=== PATIENT | female | born 1950 | race Caucasian/White ===

== ENCOUNTER 2024-04-09 05:53 | Inpatient (IN) | payer MEDICARE, BC ==
[~2024-04-09] VITALS: Ht 160 cm; Wt 77.1 kg
[2024-04-09] MEDS ORDERED: ANESTHESIA TRAY IN PYXIS 1 EA TRAY MC ONE (06:57)
[2024-04-09] MEDS ORDERED: ROCURONIUM BROMIDE 50 MG/5 ML ONE (06:58)
[2024-04-09] MEDS ORDERED: FENTANYL PF 100MCG/2ML AMPUL ONE (06:58)
[2024-04-09] MEDS ORDERED: FAMOTIDINE/PF INJ 20 MG/2 ML VIAL IV ONE (06:58)
[2024-04-09] MEDS ORDERED: OXYMETAZOLINE HCL NASAL SPRAY 30 ML BOTTLE NS ONE (07:10)
[2024-04-09] MEDS ORDERED: dexaMETHasone SOD PHOSPHATE 2 ML ONE (07:10)
[2024-04-09] MEDS ORDERED: VANCOMYCIN 1 GM VIAL ONE (07:10)
[2024-04-09] MEDS ORDERED: LIDOCAINE 2%-EPI 1:100,000 30 ML VIAL ONE (07:10)
[2024-04-09] MEDS ORDERED: ONDANSETRON HCL/PF 4 MG/2 ML VIAL IVP PRN (10:30)
[2024-04-09] MEDS ORDERED: ACETAMINOPHEN 325 MG TABLET PO PRN (10:30)
[2024-04-09] MEDS: HYDROMORPHONE 1 MG/1 ML DISP.SYRIN IV PRN (11:03)
[2024-04-09] MEDS: IV NS 0.9% 1,000 ML IV PRN (11:15)
[2024-04-09] MEDS ORDERED: MOUNJARO SQ (11:19)
[2024-04-09] MEDS ORDERED: NEBI5TAB8 PO (11:19)
[2024-04-09] MEDS ORDERED: ROSU20TA2 PO (11:19)
[2024-04-09] MEDS ORDERED: TELM20TA8 PO (11:19)
[2024-04-09] MEDS ORDERED: FAMO40TA7 PO (11:19)
[2024-04-09] MEDS ORDERED: IBUPROFEN-FAMOTIDINE PO (11:19)
[2024-04-09] MEDS ORDERED: DAPA10TA PO (11:19)
[2024-04-09] MEDS ORDERED: FAMOTIDINE (20 MG) 20 MG TABLET PO PRN (12:30)
[2024-04-09 17:52] VITALS: BP 125/75; TEMP 97.7; O2SAT 95
[2024-04-09 20:00] VITALS: BP 105/49; TEMP 97.9; O2SAT 92
[2024-04-09] MEDS: METOPROLOL TARTRATE 25 MG TABLET PO SCH (20:16)
[2024-04-09] MEDS: VANCOMYCIN 1 GM in IV D5W 250ml IV SCH (20:25)
[2024-04-09 20:41] VITALS: O2SAT 95
[2024-04-10 08:00] VITALS: BP 100/61; TEMP 98.8; O2SAT 96
[2024-04-10] MEDS: LOSARTAN POTASSIUM 25 MG TABLET PO SCH (08:19)
[2024-04-10 16:00] VITALS: BP 107/96; TEMP 98.6; O2SAT 98
== END 2024-04-10 14:00 | disposition home or self-care (01) | DRG 141 ==
LOC: DS 05:53 → MED 10:30
PROVIDERS: ADMIT Internal Medicine; ATTEND Internal Medicine
PROC: 0NSR04Z Reposition Maxilla with Internal Fixation Device, Open Approach (ICD-10-PCS; principal; 2024-04-09)
PROC: 0NBR0ZX Excision of Maxilla, Open Approach, Diagnostic (ICD-10-PCS; 2024-04-09)
PROC: 0NUR07Z Supplement Maxilla with Autologous Tissue Substitute, Open Approach (ICD-10-PCS; 2024-04-09)
PROC: 0NUR0JZ Supplement Maxilla with Synthetic Substitute, Open Approach (ICD-10-PCS; 2024-04-09)
DX: S02.40DA Maxillary fracture, left side, initial encounter for closed fracture (principal); M86.20 Subacute osteomyelitis, unspecified site; M87.9 Osteonecrosis, unspecified; M27.2 Inflammatory conditions of jaws; M27.40 Unspecified cyst of jaw; D21.9 Benign neoplasm of connective and other soft tissue, unspecified; E66.9 Obesity, unspecified; Z68.30 Body mass index [BMI] 30.0-30.9, adult; E78.5 Hyperlipidemia, unspecified; E11.69 Type 2 diabetes mellitus with other specified complication; I10 Essential (primary) hypertension; J32.0 Chronic maxillary sinusitis; X58.XXXA Exposure to other specified factors, initial encounter; Y92.9 Unspecified place or not applicable
CPT/HCPCS: 82962-TC; 87081-TC; 88305-TC; 88311-TC; A4223; C1713; G0378; J1100; J1170; J2405; J2704; J3010; J3370; J3490; J7030; J7050; J7060

== ENCOUNTER 2024-09-17 07:19 | Inpatient (IN) | payer MEDICARE, BC ==
[2024-09-17] VITALS (7 sets, daily range): BP systolic 99–113; BP diastolic 54–89; TEMP 97.5–98.2; O2SAT 91–99
[~2024-09-17] VITALS: Ht 160 cm; Wt 83.9 kg
[~2024-09-17 07:19] MED LIST: DAPA10TA PO; FAMO40TA7 PO; IBUPROFEN-FAMOTIDINE PO; MOUNJARO SQ; NEBI5TAB8 PO; ROSU20TA2 PO; TELM20TA8 PO
[2024-09-17] MEDS ORDERED: LIDOCAINE 2%-EPI 1:100,000 30 ML VIAL ONE (09:55)
[2024-09-17] MEDS ORDERED: VANCOMYCIN 1 GM VIAL ONE (09:55)
[2024-09-17] MEDS ORDERED: dexaMETHasone SOD PHOSPHATE 2 ML ONE (09:55)
[2024-09-17] MEDS ORDERED: DULA0.75 SQ (10:08)
[2024-09-17] MEDS ORDERED: ONDANSETRON HCL/PF 4 MG/2 ML VIAL IV PRN (12:00)
[2024-09-17] MEDS ORDERED: ACETAMINOPHEN 325 MG TABLET PO PRN (12:00)
[2024-09-17] MEDS: IV NS 0.9% 1,000 ML IV PRN (12:12)
[2024-09-17] MEDS: HYDROMORPHONE 1 MG/1 ML DISP.SYRIN IV PRN (14:47)
[2024-09-17] MEDS: METOPROLOL TARTRATE 25 MG TABLET PO SCH (21:18)
[2024-09-17] MEDS: VANCOMYCIN 1 GM in IV D5W 250ml IV SCH (22:02)
[2024-09-18 06:23] LABS: BASOPHILS % (AUTO) 0.1 % (0.0-2.0); HEMATOCRIT 40 % (33-45); HEMOGLOBIN 13.3 g/dL (11.5-14.8); LYMPHOCYTES # (AUTO) 1.2 K/uL (0.8-4.8); LYMPHOCYTES % (AUTO) 9.6 % (20.0-44.0); MEAN CORPUSCULAR HEMOGLOBIN 32 PG (26.0-33.0); MEAN CORPUSCULAR HGB CONC 33 g/dl (31.0-36.0); MEAN CORPUSCULAR VOLUME 95 fL (82-100); MONOCYTES # (AUTO) 0.7 K/uL (0.1-1.30); MONOCYTES % (AUTO) 5.8 % (2.0-12.0); NEUTROPHILS # (AUTO) 10.7 K/uL (1.8-8.9); NEUTROPHILS % (AUTO) 84.5 % (43.0-81.0); PLATELET COUNT (AUTO) 241 K/uL (150-450); RED BLOOD CELL COUNT(AUTO) 4.24 MIL/uL (4.0-5.2); RED CELL DISTRIBUTION WIDTH 13.9 % (11.5-15.0); WHITE BLOOD COUNT (AUTO) 12.6 K/uL (4.3-11.0)
[2024-09-18 06:46] LABS: ALANINE AMINOTRANSFERASE 26 U/L (12-78); ALBUMIN 3.3 g/dL (3.4-5.0); ALKALINE PHOSPHATASE 63 U/L (46-116); ASPARTATE AMINOTRANSFERASE 14 U/L (15-37); BILIRUBIN,TOTAL 0.4 mg/dL (0.2-1.0); CARBON DIOXIDE 27 mmol/L (21-32); CHLORIDE 104 mmol/L (98-107); CREATININE 0.9 mg/dL (0.6-1.3); GLUCOSE 174 mg/dL (74-106); MAGNESIUM 2.2 mg/dL (1.8-2.4); POTASSIUM 4.4 mmol/L (3.5-5.1); SODIUM SERUM 139 mmol/L (136-145); TOTAL PROTEIN, SERUM 6.3 g/dL (6.4-8.2); UREA NITROGEN, BLOOD 25 mg/dL (7-18)
[2024-09-18 08:00] VITALS: BP 109/71; TEMP 98.2; O2SAT 97
[2024-09-18] MEDS: DAPAGLIFLOZIN PROPANEDIOL 5 MG TABLET PO SCH (08:26)
[2024-09-18] MEDS: ATORVASTATIN 40 MG TABLET PO SCH (08:27)
[2024-09-18 08:29] VITALS: BP 109/71
[2024-09-18] MEDS: LOSARTAN POTASSIUM 25 MG TABLET PO SCH (08:29)
== END 2024-09-18 13:15 | disposition home or self-care (01) | DRG 908 ==
LOC: DS 07:19 → MED 07:23
PROVIDERS: ADMIT Internal Medicine; ATTEND Internal Medicine
PROC: 0NPW0JZ Removal of Synthetic Substitute from Facial Bone, Open Approach (ICD-10-PCS; principal; 2024-09-17)
PROC: 0N5R0ZZ Destruction of Maxilla, Open Approach (ICD-10-PCS; 2024-09-17)
PROC: 0NUR07Z Supplement Maxilla with Autologous Tissue Substitute, Open Approach (ICD-10-PCS; 2024-09-17)
PROC: 0NSR04Z Reposition Maxilla with Internal Fixation Device, Open Approach (ICD-10-PCS; 2024-09-17)
DX: T86.831 Bone graft failure (principal); S02.40DK Maxillary fracture, left side, subsequent encounter for fracture with nonunion; T84.7XXA Infection and inflammatory reaction due to other internal orthopedic prosthetic devices, implants and grafts, initial encounter; E11.9 Type 2 diabetes mellitus without complications; E78.5 Hyperlipidemia, unspecified; Y83.2 Surgical operation with anastomosis, bypass or graft as the cause of abnormal reaction of the patient, or of later complication, without mention of misadventure at the time of the procedure; I10 Essential (primary) hypertension; X58.XXXD Exposure to other specified factors, subsequent encounter; Y83.8 Other surgical procedures as the cause of abnormal reaction of the patient, or of later complication, without mention of misadventure at the time of the procedure; Y92.009 Unspecified place in unspecified non-institutional (private) residence as the place of occurrence of the external cause; M27.2 Inflammatory conditions of jaws; T18.0XXA Foreign body in mouth, initial encounter; M27.49 Other cysts of jaw; J32.0 Chronic maxillary sinusitis
CPT/HCPCS: 36415; 80053-TC; 83735-TC; 84100-TC; 85025-TC; 87081-TC; 88300-TC; 88305-TC; 88311-TC; A4217; A4223; C1713; G0378; J0690; J1100; J1171; J2704; J3370; J3490; J7030; J7060